=== PATIENT | male | born 1955 | race Caucasian/White ===

== ENCOUNTER → 2025-03-24 | Outpatient (CLI) | payer OTHER, SELFPAY ==
--- NOTE | 2025-03-24 10:28 | ECHOD_ITS ---
Reason For Study Reason For Study: CAD/ASHD Procedure This was a 2D Doppler, Color Flow transthoracic echocardiogram. Exam performed in department. Left Ventricle Normal LV size. Mild concentric left ventricular hypertrophy. The LV systolic function is normal. EF is 65 %. Stage 1 diastolic dysfunction. Right Ventricle Normal right ventricle. Atria The left and right atria are normal. Mitral Valve Mild (1+) mitral valve insufficiency. Tricuspid Valve Mild tricuspid valve insufficiency. Right ventricular systolic pressure estimated to be 45 mmHg. Aortic Valve Trisinus/trileaflet aortic valve. Pulmonic Valve The pulmonic valve is not well visualized. Great Vessels Normal sized aortic root. Pericardium/Pleural No pericardial effusion. MMode/2D Measurements & Calculations LVIDd: 4.1 cm IVSd: 1.4 cm LVOT diam: 2.0 cm LVIDs: 3.2 cm LVPWd: 1.4 cm LVOT area: 3.2 cm2 RVDd: 3.1 cm FS: 21.5 % Ao root diam: 3.0 cm LAV(MOD-bp): 56.3 ml LVAd ap4: 29.4 cm2 LAV(MOD-bp) Indexed: 26.5 ml/m2 LVLd ap4: 9.0 cm LAV(MOD-sp2): 60.4 ml EDV(MOD-sp4): 81.0 ml LAV(MOD-sp4): 47.8 ml EDV(sp4-el): 82.1 ml LVAs ap4: 15.4 cm2 LVLs ap4: 7.0 cm ESV(MOD-sp4): 28.6 ml ESV(sp4-el): 28.6 ml EF(MOD-sp4): 64.7 % EF(sp4-el): 65.2 % SV(MOD-sp4): 52.4 ml SV(sp4-el): 53.5 ml LA A4 area: 19.1 cm2 SI(MOD-sp4): 24.7 ml/m2 LA dimension(2D): 4.0 cm RA A4 area: 10.7 cm2 Time Measurements MV dec time: 0.18 sec Doppler Measurements & Calculations MV E max howard: 80.3 cm/sec Lat Peak E' Howard: 14.7 cm/sec Med Peak E' Howard: 9.4 cm/sec MV A max howard: 54.0 cm/sec E/E' lat: 5.4 E/E' med: 8.6 MV E/A: 1.5 MV V2 max: 74.5 cm/sec Ao V2 max: 131.0 cm/sec MV max P.2 mmHg MV dec slope: 458.6 cm/sec2 Ao max P.9 mmHg MV V2 mean: 45.5 cm/sec Ao V2 mean: 91.4 cm/sec MV mean P.94 mmHg Ao mean P.9 mmHg MV V2 VTI: 26.3 cm Ao V2 VTI: 30.8 cm AV (velocity ratio): 0.81 MVA(VTI): 3.1 cm2 LEON(I,D): 2.6 cm2 LEON(V,D): 2.7 cm2 LV V1 max: 108.7 cm/sec SV(LVOT): 80.7 ml PA V2 max: 79.7 cm/sec LV V1 max P.7 mmHg PA V2 mean: 59.2 cm/sec LV V1 mean P.7 mmHg LV V1 mean: 76.2 cm/sec LV V1 VTI: 25.0 cm TR max howard: 271.9 cm/sec TR max P.6 mmHg ECHO/Echo Complete Interpretation Summary Mild concentric left ventricular hypertrophy. The LV systolic function is normal. EF is 65 %. Stage 1 diastolic dysfunction. Mild (1+) mitral valve insufficiency. Mild tricuspid valve insufficiency. Right ventricular systolic pressure estimated to be 45 mmHg. Ordering Physician: Carl Sargent Referring Physician: Carl Sargent Performed By: Flori Nj RCS
== END | disposition home or self-care (01) ==
PROVIDERS: Referring Provider Chiropractor; Visit Provider Chiropractor
DX: I25.10 Atherosclerotic heart disease of native coronary artery without angina pectoris (principal); I70.90 Unspecified atherosclerosis
CPT/HCPCS: 93306

== ENCOUNTER 2025-04-11 13:11 | Outpatient (CLI) | payer OTHER, SELFPAY ==
--- NOTE | 2025-04-11 13:14 | ART_ITS ---
Reason For Study Reason For Study: Atherosclerosis Procedure A bilateral lower extremity continuous wave Doppler with analog waveform analysis and ankle brachial indexes. Left Segmental Pressures Left brachial= 131mmHg. Left posterior tibial artery = 154mmHg. Left dorsalis pedis artery = 159mmHg. The left dorsalis pedis waveforms are triphasic. The left posterior tibial artery waveforms are triphasic. Right Segmental Pressures Right brachial= 132mmHg. Right posterior tibial artery = 163mmHg. Right dorsalis pedis artery = 161mmHg. The right dorsalis pedis waveforms are triphasic. The right posterior tibial artery waveforms are triphasic. Indices The right ankle brachial index by the dorsalis pedis is 1.22. The right ankle brachial index by the posterior tibial artery is 1.23. The left ankle brachial index by the dorsalis pedis is 1.20. The left ankle brachial index by the posterior tibial artery is 1.17. VL/Ankle Brachial Index Interpretation Summary Right ARIE 1.23, normal. Doppler/PVR waveforms of the right ankle normal at rest . Left ARIE 1.2, normal. Doppler/PVR waveforms of the left ankle normal at rest. Ordering Physician: Carl Sargent Referring Physician: Carl Sargent DO Performed By: Isha Erickson RVT
== END 2025-04-11 23:59 | disposition home or self-care (01) ==
LOC: CVS 13:11
PROVIDERS: PCP Chiropractor; Referring Provider Chiropractor; Visit Provider Chiropractor
DX: I25.10 Atherosclerotic heart disease of native coronary artery without angina pectoris (principal); I70.90 Unspecified atherosclerosis
CPT/HCPCS: 93922